=== PATIENT | female | born 1985 | race American Indian/Alaskan Native ===

== ENCOUNTER 2018-04-24 10:29 | Emergency (ER) | payer SELFPAY ==
--- NOTE | 2018-04-24 11:29 | Emergency Department Report ---
Chief Complaint: Abdominal Pain Stated Complaint: ABD PAIN/ POSS FROM CONTROL Time Seen by Provider: 04/24/18 11:13 - HPI History of Present Illness: 32 yo AA F presents to the ED with the complaint of dysfunctional uterine bleeding and now some pelvic pain and vaginal discharge. She has a history of abnormal vaginal bleeding and was seen in a hospital in [place] or [place], and then again at [facility] 2 weeks ago. She was placed on control. The previous heavy bleeding has slowed down but now she has pelvic discomfort and some vaginal discharge. No PCP or [facility]. - ROS Review of Systems: Positive for vaginal bleeding and discharge, pelvic pain Negative for dyuria, N/V, fever - Exam Vital Signs: Vital Signs 04/24/18 10:38 Temperature 98.1 F Pulse Rate 80 Respiratory 18 Rate Blood Pressure 128/80 O2 Sat by Pulse 99 Oximetry Physical Exam: Awake and alert. Heart and lung sounds normal to auscultation. MSE screening note: Focused history and physical exam performed. Due to findings the following was ordered: She will have a CBC, BMP, U/A, preg test, and a pelvic ultrasound. ED Disposition for MSE Condition: Stable Instructions: Abdominal Pain (ED) Referrals: PRIMARY CARE [Primary Care Provider] - 3-5 Days
[2018-04-24 11:40] LABS: Basophils % (Auto) 0.5 % (0.0-1.8); Eosinophils # (Auto) 0.1 K/mm3 (0.0-0.4); Eosinophils % (Auto) 1.4 % (0.0-4.3); Hematocrit 33.4 % (30.3-42.9); Hemoglobin 10.8 gm/dl (10.1-14.3); Lymphocytes # (Auto) 1.8 K/mm3 (1.2-5.4); Mean Corpuscular HGB Conc 32 % (30-34); Mean Corpuscular Volume 77 fl (79-97); Monocytes # (Auto) 0.5 K/mm3 (0.0-0.8); Monocytes % (Auto) 7.3 % (0.0-7.3); Platelet Count 335 K/mm3 (140-440); Red Blood Count 4.32 M/mm3 (3.65-5.03)
[2018-04-24 11:53] LABS: Mean Corpuscular Hemoglobin 25 pg (28-32); Red Cell Distribution Width 20.3 % (13.2-15.2)
[2018-04-24 11:59] LABS: BUN/Creatinine Ratio 13; Blood Urea Nitrogen 9 mg/dL (7-17); Hemolysis Index 3
--- NOTE | 2018-04-24 14:34 | Ultrasound Report ---
FINAL REPORT EXAM: US PELVIS DUPLEX DOPPLER COMP HISTORY: pelvic pain TECHNIQUE: Transabdominal and transvaginal pelvic ultrasound. Spectral Doppler analysis performed. PRIORS: None currently available. FINDINGS: Uterus: 11.3 x 5.6 x 6.8 cm. Retroflex. Homogeneous echotexture. Within normal limits. No distinct lesions. Endometrium: 19.4 mm. Thickened. No distinct lesions. Echogenic. Irregular borders. Right ovary: 3.1 x 2.3 x 3.0 cm. Mildly lobulated 2.6 cm cyst. Normal spectral Doppler flow within the ovary. Left ovary: 4.8 x 2.5 x 3.8 cm. Mildly lobulated 3.8 cm cyst with internal low level echoes. Mild peripheral flow. Normal spectral Doppler flow within the ovary. No adnexal lesions. Small amount of free fluid in the endocervical canal. No free fluid in the cul-de-sac. IMPRESSION: Mildly complex left ovarian cyst may represent a corpus luteal cyst or hemorrhagic cyst. Cystic tumor not entirely excluded. Mildly lobulated otherwise simple right ovarian cyst. Short-term interval follow-up to document bilateral ovarian cysts recommended. Small amount of free fluid in the endometrial canal. Thickened slightly irregular endometrium may be related to hyperplasia. Lesion not entirely excluded.
--- NOTE | 2018-04-24 16:13 | Emergency Department Report ---
ED Female HPI - General Chief complaint: Abdominal Pain Stated complaint: ABD PAIN/ POSS FROM CONTROL Time Seen by Provider: 04/24/18 11:13 Source: patient Mode of arrival: Ambulatory Limitations: No Limitations - History of Present Illness Initial comments: This is a 32-year-old -[place] female who presents with vaginal bleeding for 1 month. Patient states she was on vacation one month ago and had abnormal vaginal bleeding with passing clots. She went to the nearest hospital in [place] and was diagnosed with dysfunctional uterine bleeding. Patient states symptoms improved slightly with medication given in the hospital but when she returned home 2 weeks later and bleeding increased which prompt her to follow up at [facility]. [facility] agree with previous Hospital of dysfunctional uterine bleeding and started patient on blood pressure medication. Patient states bleeding has improved she is now having light bleeding which only requires pantiliners. Denies passing large clots, abdominal pain, low back pain, fever, lightheadedness, chest pain, and shortness of breath. MD Complaint: vaginal bleeding Onset/Timin -: month(s) Severity: mild Severity scale (0 -10): 4 Consistency: intermittent Improves with: medication Worsens with: none Are you Now?: No Associated Symptoms: vaginal bleeding. denies: vaginal discharge, abdominal pain, nausea/vomiting, fever/chills, headaches, loss of appetite, dysuria, hematuria, rash, seizure, shortness of breath, syncope, weakness - Related Data Sexually active: Yes Previous Rx's Medication Instructions Recorded Last Taken Type metroNIDAZOLE [Metronidazole] 500 mg PO BID #14 tablet 04/24/18 Unknown Rx Allergies Allergy/AdvReac Type Severity Reaction Status Date / Time No Known Allergies Allergy Unverified 04/24/18 10:37 ED Review of Systems ROS: Stated complaint: ABD PAIN/ POSS FROM CONTROL Other details as noted in HPI Constitutional: denies: chills, fever Respiratory: denies: cough, shortness of breath, wheezing Cardiovascular: denies: chest pain, palpitations Gastrointestinal: denies: abdominal pain, nausea, vomiting, diarrhea Genitourinary: other (abnormal vaginal bleeding). denies: urgency, dysuria, discharge Neurological: denies: headache, weakness, paresthesias Psychiatric: denies: anxiety, depression ED Past Medical Hx - Past Medical History Previous Medical History?: Yes Additional medical history: anemia - Surgical History Past Surgical History?: Yes Additional Surgical History: x 3 - Social History Smoking Status: Former Smoker Substance Use Type: None - Medications Home Medications: Home Medications Medication Instructions Recorded Confirmed Last Taken Type metroNIDAZOLE [Metronidazole] 500 mg PO BID #14 tablet 04/24/18 Unknown Rx ED Physical Exam - General Limitations: No Limitations General appearance: alert, in no apparent distress, obese - Respiratory Respiratory exam: Present: normal lung sounds bilaterally. Absent: respiratory distress - Cardiovascular Cardiovascular Exam: Present: regular rate, normal rhythm. Absent: systolic murmur, diastolic murmur, rubs, gallop - GI/Abdominal GI/Abdominal exam: Present: soft, normal bowel sounds. Absent: distended, tenderness, guarding, rebound, rigid, organomegaly, mass - External exam: Present: normal external exam Speculum exam: Present: vaginal discharge (malodorous white discharge). Absent : erythema, cervical discharge, vaginal bleeding, foreign body, tissue, laceration Bi-manual exam: Present: normal bi-manual exam - Back Exam Back exam: Present: normal inspection. Absent: CVA tenderness (R), CVA tenderness (L) - Neurological Exam Neurological exam: Present: alert, oriented X3 - Psychiatric Psychiatric exam: Present: normal affect, normal mood - Skin Skin exam: Present: warm, dry, intact, normal color. Absent: rash ED Course Vital Signs 04/24/18 10:38 Temperature 98.1 F Pulse Rate 80 Respiratory 18 Rate Blood Pressure 128/80 O2 Sat by Pulse 99 Oximetry ED Medical Decision Making - Lab Data Result diagrams: 04/24/18 11:31 04/24/18 11:31 Lab Results 04/24/18 04/24/18 04/24/18 Range/Units 11:31 11:31 11:31 WBC 7.1 (4.5-11.0) K/mm3 RBC 4.32 (3.65-5.03) M/mm3 Hgb 10.8 (10.1-14.3) gm/dl Hct 33.4 (30.3-42.9) % MCV 77 L (79-97) fl MCH 25 L (28-32) pg MCHC 32 (30-34) % RDW 20.3 H (13.2-15.2) % Plt Count 335 (140-440) K/mm3 Lymph % (Auto) 26.0 (13.4-35.0) % Douglas % (Auto) 7.3 (0.0-7.3) % Eos % (Auto) 1.4 (0.0-4.3) % Baso % (Auto) 0.5 (0.0-1.8) % Lymph # 1.8 (1.2-5.4) K/mm3 Douglas # 0.5 (0.0-0.8) K/mm3 Eos # 0.1 (0.0-0.4) K/mm3 Baso # 0.0 (0.0-0.1) K/mm3 Seg Neutrophils % 64.8 (40.0-70.0) % Seg Neutrophils # 4.6 (1.8-7.7) K/mm3 Sodium 138 (137-145) mmol/L Potassium 4.1 (3.6-5.0) mmol/L Chloride 100.8 (98-107) mmol/L Carbon Dioxide 26 (22-30) mmol/L Anion Gap 15 mmol/L BUN 9 (7-17) mg/dL Creatinine 0.7 (0.7-1.2) mg/dL Estimated GFR > 60 ml/min BUN/Creatinine Ratio 13 % Glucose 96 (65-100) mg/dL Calcium 9.0 (8.4-10.2) mg/dL HCG, Qual Negative (Negative) - Radiology Data Radiology results: report reviewed EXAM: US TRANSVAGINAL HISTORY: pelvic pain TECHNIQUE: Transabdominal and transvaginal pelvic ultrasound. Spectral Doppler analysis performed. PRIORS: None currently available. FINDINGS: Uterus: 11.3 x 5.6 x 6.8 cm. Retroflex. Homogeneous echotexture. Within normal limits. No distinct lesions. Endometrium: 19.4 mm. Thickened. No distinct lesions. Echogenic. Irregular borders. Right ovary: 3.1 x 2.3 x 3.0 cm. Mildly lobulated 2.6 cm cyst. Normal spectral Doppler flow within the ovary. Left ovary: 4.8 x 2.5 x 3.8 cm. Mildly lobulated 3.8 cm cyst with internal low level echoes. Mild peripheral flow. Normal spectral Doppler flow within the ovary. No adnexal lesions. Small amount of free fluid in the endocervical canal. No free fluid in the cul-de-sac. IMPRESSION: Mildly complex left ovarian cyst may represent a corpus luteal cyst or hemorrhagic cyst. Cystic tumor not entirely excluded. Mildly lobulated otherwise simple right ovarian cyst. Short-term interval follow-up to document bilateral ovarian cysts recommended. Small amount of free fluid in the endometrial canal. Thickened slightly irregular endometrium may be related to hyperplasia. Lesion not entirely excluded. EXAM: US PELVIS DUPLEX DOPPLER COMP HISTORY: pelvic pain TECHNIQUE: Transabdominal and transvaginal pelvic ultrasound. Spectral Doppler analysis performed. PRIORS: None currently available. FINDINGS: Uterus: 11.3 x 5.6 x 6.8 cm. Retroflex. Homogeneous echotexture. Within normal limits. No distinct lesions. Endometrium: 19.4 mm. Thickened. No distinct lesions. Echogenic. Irregular borders. Right ovary: 3.1 x 2.3 x 3.0 cm. Mildly lobulated 2.6 cm cyst. Normal spectral Doppler flow within the ovary. Left ovary: 4.8 x 2.5 x 3.8 cm. Mildly lobulated 3.8 cm cyst with internal low level echoes. Mild peripheral flow. Normal spectral Doppler flow within the ovary. No adnexal lesions. Small amount of free fluid in the endocervical canal. No free fluid in the cul-de-sac. IMPRESSION: Mildly complex left ovarian cyst may represent a corpus luteal cyst or hemorrhagic cyst. Cystic tumor not entirely excluded. Mildly lobulated otherwise simple right ovarian cyst. Short-term interval follow-up to document bilateral ovarian cysts recommended. Small amount of free fluid in the endometrial canal. Thickened slightly irregular endometrium may be related to hyperplasia. Lesion not entirely excluded. - Medical Decision Making This is a 32-year-old -[place] female who presents with increased vaginal bleeding for 1 month. Patient was examined by me. Vitals are stable and in no acute distress. CBC, BMP, hcg qual, and wet prep obtained via pelvic exam. Wet prep positive for clue cells, all other labs unremarkable. Transvaginal US dictated by radiologist. Mildly complex left ovarian cyst may represent a corpus luteal cyst or hemorrhagic cyst. Cystic tumor not entirely excluded. Mildly lobulated otherwise simple right ovarian cyst. Short-term interval follow-up to document bilateral ovarian cysts recommended. Small amount of free fluid in the endometrial canal. Thickened slightly irregular endometrium may be related to hyperplasia. Lesion not entirely excluded. Patient is currently taking oral contraceptives prescribed by [facility]. Start metronidazole 500 mg by mouth bid x 7 days for bacterial vaginitis. Referral to [facility] for follow-up , patient given referrals at discharge. Reviewed results with patient. Discharged home in stable condition. Discussed prevention options. F/U with PCP. Critical care attestation.: If time is entered above; I have spent that time in minutes in the direct care of this critically ill patient, excluding procedure time. ED Disposition Clinical Impression: Dysfunctional uterine bleeding, Bacterial vaginitis, Endometrial hyperplasia Disposition: TO HOME OR SELFCARE Is pt being admited?: No Does the pt Need Aspirin: No Condition: Stable Instructions: Bacterial Vaginosis (ED), Abdominal Pain (ED) Additional Instructions: Avoid drinking alcohol while taking antibiotics and for 24 hours after completion. Continue safe sexual intercourse. Follow-up with [facility] in 2-4 days for further management of endometrium hyperplasia and Dysfunctional vaginal bleeding. Follow up with Primary Care Provider in 2-3 days. Prescriptions: metroNIDAZOLE [Metronidazole] 500 mg PO BID #14 tablet Referrals: [facility] [Provider Group] - 3-5 Days [facility] [Provider Group] - 3-5 Days [facility] [Outside] - 3-5 Days Forms: Work/School Release Form(ED) Time of Disposition: 17:36 Print Language: LAO
[2018-04-24 17:52] VITALS: BP 124/78
== END 2018-04-24 17:51 | disposition home or self-care (01) ==
LOC: ED 10:29
DX: N76.0 Acute vaginitis (principal); N93.8 Other specified abnormal uterine and vaginal bleeding; N85.00 Endometrial hyperplasia, unspecified; Z86.2 Personal history of diseases of the blood and blood-forming organs and certain disorders involving the immune mechanism; Z87.891 Personal history of nicotine dependence
CPT/HCPCS: 36415; 76830; 80048; 84703; 85025; 87210; 93975; 99284

== ENCOUNTER 2019-08-14 06:51 | Observation (INO) | payer OTHER ==
--- NOTE | 2019-08-14 07:27 | XRay Report ---
CHEST 1 VIEW INDICATION / CLINICAL INFORMATION: Chest Pain. COMPARISON: 11/02/2010 FINDINGS: SUPPORT DEVICES: None. HEART / MEDIASTINUM: No significant abnormality. LUNGS / PLEURA: No significant pulmonary or pleural abnormality. No pneumothorax. ADDITIONAL FINDINGS: No significant additional findings. IMPRESSION: 1. No acute findings. No interval change. Signer Name: Lizy Og MD Signed: 08/14/2019 7:22 AM Workstation Name: [id number][id number]
[2019-08-14 07:49] LABS: BUN/Creatinine Ratio 11; Blood Urea Nitrogen 9 mg/dL (7-17); Calcium 9.1 mg/dL (8.4-10.2); Hemolysis Index 12
[2019-08-14 07:57] LABS: Basophils % (Auto) 0.8 % (0.0-1.8); Eosinophils # (Auto) 0.1 K/mm3 (0.0-0.4); Eosinophils % (Auto) 2.8 % (0.0-4.3); Hematocrit 31.5 % (30.3-42.9); Hemoglobin 10.1 gm/dl (10.1-14.3); Lymphocytes # (Auto) 1.3 K/mm3 (1.2-5.4); Lymphocytes % (Auto) 24.8 % (13.4-35.0); Mean Corpuscular HGB Conc 32 % (30-34); Mean Corpuscular Volume 77 fl (79-97); Monocytes # (Auto) 0.5 K/mm3 (0.0-0.8); Monocytes % (Auto) 9.3 % (0.0-7.3); Platelet Count 379 K/mm3 (140-440); Red Blood Count 4.08 M/mm3 (3.65-5.03); Red Cell Distribution Width 18.7 % (13.2-15.2)
[2019-08-14] MEDS ORDERED: KETOROLAC 60 MG/2 ML INJ IM ONE (09:44)
[2019-08-14] MEDS ORDERED: ONDANSETRON 4 MG ODT TAB PO ONE (09:44)
--- NOTE | 2019-08-14 09:49 | Emergency Department Report ---
ED Chest Pain HPI - General Chief Complaint: Chest Pain Stated Complaint: CHEST PAIN, FEEL LIKE A HEART ATTACK Time Seen by Provider: 08/14/19 09:34 Source: patient Mode of arrival: Ambulatory Limitations: No Limitations - History of Present Illness Initial Comments: 34-year-old female with a past medical history of anemia requiring blood transfusion, smoking, and cocaine use presents to the hospital complaining of chest pain that started 1 hour prior to arrival. Pain is described as 10/10 in intensity, a left-sided pressure radiating to the back. Pain has been constant recently 8/10 at onset now currently 7/10 in intensity. No aggravating or a lleviating factors reported. Patient had associated palpitations, shortness of breath, and dizziness. Patient has had nausea with 2 episodes of vomiting and 3 episodes of loose stools last night. She denies history of CAD, hypertension, or hyperlipidemia. Her father has a history of heart surgery in the past. She denies history of PE/DVT, control per use, recent travel, calf tenderness/ leg edema, or recent surgery. MD Complaint: chest pain - Related Data Previous Rx's Medication Instructions Recorded Last Taken Type metroNIDAZOLE [Metronidazole] 500 mg PO BID #14 tablet 04/24/18 Unknown Rx Allergies Allergy/AdvReac Type Severity Reaction Status Date / Time No Known Allergies Allergy Unverified 04/24/18 10:37 Heart Score - HEART Score History: Slightly suspicious EKG: Normal Age: < 45 Risk factors: 1-2 risk factors Troponin: < normal limit HEART Score: 1 ED Review of Systems ROS: Stated complaint: CHEST PAIN, FEEL LIKE A HEART ATTACK Other details as noted in HPI Comment: All other systems reviewed and negative ED Past Medical Hx - Past Medical History Previous Medical History?: Yes Additional medical history: anemia - Surgical History Past Surgical History?: Yes Additional Surgical History: x 3 - Social History Smoking Status: Current Every Day Smoker Substance Use Type: None - Medications Home Medications: Home Medications Medication Instructions Recorded Confirmed Last Taken Type metroNIDAZOLE [Metronidazole] 500 mg PO BID #14 tablet 04/24/18 Unknown Rx ED Physical Exam - General Limitations: No Limitations - Other Other exam information: General: No acute distress Head: Atraumatic Eyes: normal appearance ENT: Moist mucous membranes Neck: Normal appearance, no midline tenderness Chest: Clear to auscultation bilaterally, mid and lower sternal chest wall tenderness CV: Regular rate and rhythm Abdomen: Soft, normal bowel sounds, nontender, nondistended, no rebound or guarding Back: Normal inspection Extremity: Normal inspection infection, full range of motion, no calf tenderness or leg edema Neuro: Alert O x 3, no facial asymmetry, speech clear, no gross motor sensory deficit Psych: Appropriate behavior Skin: No rash ED Course Vital Signs 08/14/19 08/14/19 06:57 10:09 Temperature 97.9 F Pulse Rate 73 70 Respiratory 12 18 Rate Blood Pressure 155/89 Blood Pressure 146/94 [Left] O2 Sat by Pulse 100 99 Oximetry - Consultations Consultation #1: 08/14/19 11:23 pt evaluated by estuardo/nicole with [facility]. ekg changes nonspecific. rec admission for card workup KEVIN score - Kevin Score Age > 65: (0) No Aspirin use within the Past 7 Days: (0) No 3 or more CAD Risk Factors: (0) No 2 or more Angina events in past 24 hrs: (0) No Known CAD with more than 50% Stenosis: (0) No Elevated Cardiac Markers: (0) No ST Deviation Greater than 0.5mm: (0) No KEVIN Score: 0 ED Medical Decision Making - Lab Data Result diagrams: 08/14/19 07:22 08/14/19 07:22 Lab Results 08/14/19 08/14/19 08/14/19 Range/Units 07:22 07:22 07:22 WBC 5.1 (4.5-11.0) K/mm3 RBC 4.08 (3.65-5.03) M/mm3 Hgb 10.1 (10.1-14.3) gm/dl Hct 31.5 (30.3-42.9) % MCV 77 L (79-97) fl MCH 25 L (28-32) pg MCHC 32 (30-34) % RDW 18.7 H (13.2-15.2) % Plt Count 379 (140-440) K/mm3 Lymph % (Auto) 24.8 (13.4-35.0) % [place] % (Auto) 9.3 H (0.0-7.3) % Eos % (Auto) 2.8 (0.0-4.3) % Baso % (Auto) 0.8 (0.0-1.8) % Lymph # 1.3 (1.2-5.4) K/mm3 [place] # 0.5 (0.0-0.8) K/mm3 Eos # 0.1 (0.0-0.4) K/mm3 Baso # 0.0 (0.0-0.1) K/mm3 Seg Neutrophils % 62.3 (40.0-70.0) % Seg Neutrophils # 3.2 (1.8-7.7) K/mm3 Sodium 138 (137-145) mmol/L Potassium 3.7 (3.6-5.0) mmol/L Chloride 101.9 (98-107) mmol/L Carbon Dioxide 25 (22-30) mmol/L Anion Gap 15 mmol/L BUN 9 (7-17) mg/dL Creatinine 0.8 (0.7-1.2) mg/dL Estimated GFR > 60 ml/min BUN/Creatinine Ratio 11 % Glucose 100 (65-100) mg/dL Calcium 9.1 (8.4-10.2) mg/dL Troponin T < 0.010 (0.00-0.029) ng/mL HCG, Qual Negative (Negative) 08/14/19 Range/Units 10:02 WBC (4.5-11.0) K/mm3 RBC (3.65-5.03) M/mm3 Hgb (10.1-14.3) gm/dl Hct (30.3-42.9) % MCV (79-97) fl MCH (28-32) pg MCHC (30-34) % RDW (13.2-15.2) % Plt Count (140-440) K/mm3 Lymph % (Auto) (13.4-35.0) % [place] % (Auto) (0.0-7.3) % Eos % (Auto) (0.0-4.3) % Baso % (Auto) (0.0-1.8) % Lymph # (1.2-5.4) K/mm3 [place] # (0.0-0.8) K/mm3 Eos # (0.0-0.4) K/mm3 Baso # (0.0-0.1) K/mm3 Seg Neutrophils % (40.0-70.0) % Seg Neutrophils # (1.8-7.7) K/mm3 Sodium (137-145) mmol/L Potassium (3.6-5.0) mmol/L Chloride (98-107) mmol/L Carbon Dioxide (22-30) mmol/L Anion Gap mmol/L BUN (7-17) mg/dL Creatinine (0.7-1.2) mg/dL Estimated GFR ml/min BUN/Creatinine Ratio % Glucose (65-100) mg/dL Calcium (8.4-10.2) mg/dL Troponin T < 0.010 (0.00-0.029) ng/mL HCG, Qual (Negative) - EKG Data -: EKG Interpreted by Me EKG shows normal: sinus rhythm, ST-T waves (no stemi) Rate: normal - EKG Data 08/14/19 11:24 second ekg with ant t wave inv compare to earlier one - Radiology Data Radiology results: report reviewed CHEST 1 VIEW INDICATION / CLINICAL INFORMATION: Chest Pain. COMPARISON: 11/02/2010 FINDINGS: SUPPORT DEVICES: None. HEART / MEDIASTINUM: No significant abnormality. LUNGS / PLEURA: No significant pulmonary or pleural abnormality. No pneumothorax. ADDITIONAL FINDINGS: No significant additional findings. IMPRESSION: 1. No acute findings. No interval change. - Medical Decision Making pts Perc PE calculation is 0 therefore ddimer not obtained trop neg x 2 sternal chest tender ant t wave inv new compared to previous ekg, nonspecific but reviewed by card and admission for cp wkup rec. asa and toradol provided - Differential Diagnosis mi, unstable angina, pe, vasospam, costocondritis, Critical Care Time: No Critical care attestation.: If time is entered above; I have spent that time in minutes in the direct care of this critically ill patient, excluding procedure time. ED Disposition Clinical Impression: Chest pain, T wave inversion in EKG, Cocaine abuse, Smoker Disposition: OP ADMIT IP TO THIS HOSP Is pt being admited?: Yes Does the pt Need Aspirin: Yes Condition: Stable Time of Disposition: 11:25 (dr gonsalez/hosp)
[2019-08-14] MEDS ORDERED: ASPIRIN 325 MG TAB PO ONE (11:23)
--- NOTE | 2019-08-14 13:20 | History and Physical Report ---
History of Present Illness Date of admission: 08/14/19 11:28 Medications and Allergies Allergies Allergy/AdvReac Type Severity Reaction Status Date / Time No Known Allergies Allergy Unverified 04/24/18 10:37 Home Medications Medication Instructions Recorded Confirmed Last Taken Type metroNIDAZOLE [Metronidazole] 500 mg PO BID #14 tablet 04/24/18 Unknown Rx Exam - Constitutional Vitals: Temp Pulse Resp BP Pulse Ox 97.9 F 75 18 112/66 100 08/14/19 06:57 08/14/19 11:45 08/14/19 11:45 08/14/19 11:45 08/14/19 11:45 Results - Labs CBC & Chem 7: 08/14/19 07:22 08/14/19 07:22 Labs: Abnormal lab results 08/14/19 Range/Units 07:22 MCV 77 L (79-97) fl MCH 25 L (28-32) pg RDW 18.7 H (13.2-15.2) % Craig % (Auto) 9.3 H (0.0-7.3) %
--- NOTE | 2019-08-14 13:35 | Consultation ---
History of Present Illness Consult date: 08/14/19 Consult reason: chest pain History of present illness: This is a 34-year old woman who presents with chest pain associated with palpitations and shortness of breath. Patient has no prior medical history. Patient admits to tobacco and substance abuse. A chest x-ray done is negative. Cycled cardiac enzymes are negative thus far and her initial ECG is sinus rhythm, no acute ST or T wave changes. A repeat ECG is sinus rhythm with non- specific Twave inversions of the anterior leads. Medications and Allergies Allergies Allergy/AdvReac Type Severity Reaction Status Date / Time No Known Allergies Allergy Unverified 04/24/18 10:37 Home Medications Medication Instructions Recorded Confirmed Last Taken Type metroNIDAZOLE [Metronidazole] 500 mg PO BID #14 tablet 04/24/18 Unknown Rx Active Meds: Active Medications Pantoprazole Sodium (Protonix) 40 mg PO QDAY CRYSTAL Physical Examination Vital Signs Temp Pulse Resp BP Pulse Ox 97.9 F 73 12 155/89 100 08/14/19 06:57 08/14/19 06:57 08/14/19 06:57 08/14/19 06:57 08/14/19 06:57 Results 08/14/19 07:22 08/14/19 07:22 CBC 08/14/19 Range/Units 07:22 WBC 5.1 (4.5-11.0) K/mm3 RBC 4.08 (3.65-5.03) M/mm3 Hgb 10.1 (10.1-14.3) gm/dl Hct 31.5 (30.3-42.9) % Plt Count 379 (140-440) K/mm3 Lymph # 1.3 (1.2-5.4) K/mm3 [place] # 0.5 (0.0-0.8) K/mm3 Eos # 0.1 (0.0-0.4) K/mm3 Baso # 0.0 (0.0-0.1) K/mm3 Comprehensive Metabolic Panel 08/14/19 Range/Units 07:22 Sodium 138 (137-145) mmol/L Potassium 3.7 (3.6-5.0) mmol/L Chloride 101.9 (98-107) mmol/L Carbon Dioxide 25 (22-30) mmol/L BUN 9 (7-17) mg/dL Creatinine 0.8 (0.7-1.2) mg/dL Glucose 100 (65-100) mg/dL Calcium 9.1 (8.4-10.2) mg/dL
[2019-08-14] MEDS: KETOROLAC 30 MG/1 ML INJ IV SCH ×2 (15:06→22:42)
[2019-08-14] MEDS: PANTOPRAZOLE 40 MG TAB PO SCH (15:06)
--- NOTE | 2019-08-14 15:11 | History and Physical Report ---
History of Present Illness Date of admission: 08/14/19 11:28 Chief complaint: My chest hurts History of present illness: 34 YO Female with Obesity, Nicotine Dependence, Cocaine Dependence presents to ED for evaluation. Pt states that she has experienced acute onset of pain in her chest over the past 1 hours. Pt acknowledges cocaine use today. Pt states that her pain is 7-10/10, Localized to the left chest, radiates to the back. Pt denies worsening with exertion or relief with rest. Pt transported to [facility] via private vehicle. Pt seen and evaluated in ED and found to have Angina, suspected secondary to cocaine ingestion. Cardiology consulted in ED. Pt placed in observation status, and admitted to telemetry. Pt denies fever, chills, palpitations, NVD, Trauma, Prolonged travel/immobility, unilateral leg swelling, individual/family history of DVT/PE/Bleeding/Blood Clotting Disorders. No prior admission for review. No medication listed for reconciliation at time of admission. Past History Past Medical History: other (see hpi) Past Surgical History: Social history: single, smoking. denies: alcohol abuse Family history: hypertension Medications and Allergies Allergies Allergy/AdvReac Type Severity Reaction Status Date / Time No Known Allergies Allergy Unverified 04/24/18 10:37 Home Medications Medication Instructions Recorded Confirmed Last Taken Type metroNIDAZOLE [Metronidazole] 500 mg PO BID #14 tablet 04/24/18 Unknown Rx Active Meds: Active Medications Ketorolac Tromethamine (Toradol) 30 mg IV Q8HR [facility] Stop: 08/19/19 13:59 Pantoprazole Sodium (Protonix) 40 mg PO QDAY [facility] Review of Systems Constitutional: no weight loss, no weight gain, no fever, no chills Ears, nose, mouth and throat: no ear pain, no tinnitis, no decreased hearing, no nose pain, no nasal congestion, no sinus pressure Breasts: no change in shape, no swelling, no mass Cardiovascular: chest pain, no orthopnea, no syncope, no lightheadedness, no shortness of breath, no dyspnea on exertion, no paroxysmal nocturnal dyspnea, no high blood pressure, no decreased exercise tolerance Respiratory: no cough, no cough with sputum, no excessive sputum Gastrointestinal: no abdominal pain, no nausea, no vomiting, no diarrhea, no constipation Genitourinary Female: no dysmenorrhea, no pelvic pain, no flank pain, no menorrhagia, no dysuria Rectal: no pain, no incontinence, no bleeding Musculoskeletal: no neck stiffness, no neck pain, no shooting arm pain, no low back pain, no leg numbness/tingling Integumentary: no rash, no redness, no sores, no wounds, no jaundice, no boils Neurological: no head injury, no transient paralysis, no paralysis, no parathesias, no numbness, no seizures, no syncope Psychiatric: no anxiety, no memory loss, no change in sleep habits, no insomnia, no hypersomnia, no disorientation Endocrine: no cold intolerance, no heat intolerance, no polyphagia, no excessive thirst, no polydipsia, no polyuria, no nocturia, no flushing Hematologic/Lymphatic: no easy bruising, no easy bleeding, no lymphadenopathy, no lymphedema Allergic/Immunologic: no urticaria, no allergic rhinitis, no wheezing, no persistent infections, no anaphylaxis, no angioedema Exam - Constitutional Vitals: Temp Pulse Resp BP Pulse Ox 97.9 F 75 18 112/66 100 08/14/19 06:57 08/14/19 11:45 08/14/19 11:45 08/14/19 11:45 08/14/19 11:45 General appearance: Present: mild distress - EENT Eyes: Present: PERRL ENT: hearing intact, clear oral mucosa - Neck Neck: Present: supple, normal ROM - Respiratory Respiratory effort: normal Respiratory: bilateral: CTA - Cardiovascular Heart Sounds: Present: S1 & S2. Absent: rub, click - Extremities Extremities: pulses symmetrical, No edema Peripheral Pulses: within normal limits - Abdominal General gastrointestinal: Present: soft, non-tender, non-distended, normal bowel sounds Female genitourinary: Present: normal - Integumentary Integumentary: Present: clear, warm, dry - Musculoskeletal Musculoskeletal: gait normal, strength equal bilaterally - Psychiatric Psychiatric: appropriate mood/affect, intact judgment & insight - Neurologic Neurologic: CNII-XII intact, moves all extremities Results - Labs CBC & Chem 7: 08/14/19 07:22 08/14/19 07:22 Labs: Abnormal lab results 08/14/19 Range/Units 07:22 MCV 77 L (79-97) fl MCH 25 L (28-32) pg RDW 18.7 H (13.2-15.2) % [place] % (Auto) 9.3 H (0.0-7.3) % Assessment and Plan - Patient Problems (1) Angina at rest Current Visit: Yes Status: Acute Plan to address problem: Cardiology consulted in ED, serial cardiac enzymes, ekg, telemetry, Stress test as per cardiology team, CTA chest, lipid panel, PPI therapy (2) EKG abnormality Current Visit: Yes Status: Acute Plan to address problem: cardiology consulted for T wave inversions. (3) Nicotine dependence Current Visit: Yes Status: Acute Qualifiers: Nicotine product type: cigarettes Substance use status: in withdrawal Qualified Code(s): F17.213 - Nicotine dependence, cigarettes, with withdrawal Plan to address problem: smoking cessation counseling, +15min, supportive care. (4) Obesity Current Visit: Yes Status: Acute Plan to address problem: Balanced diet, increased physical activity at discharge (5) Cocaine abuse Current Visit: Yes Status: Acute Plan to address problem: Pt counseled regarding abstinence. 15min behavior change counseling. (6) DVT prophylaxis Current Visit: Yes Status: Acute Plan to address problem: SCD to BLE while in bed, Pt ambulatory
[2019-08-14 19:00] LABS: Amphetamine Screen,Urine PRESUMPTIVE NEGATIVE; Benzodiazepines Screen,Urine PRESUMPTIVE NEGATIVE; Methadone Screen,Urine PRESUMPTIVE NEGATIVE; Opiate Screen,Urine PRESUMPTIVE NEGATIVE
[2019-08-14 19:13] LABS: Cannabinoid Screen,Urine PRESUMPTIVE POSITIVE; Cocaine Screen,Urine PRESUMPTIVE POSITIVE
--- NOTE | 2019-08-14 19:20 | Cat Scan Report ---
CT angio chest INDICATION: Chest pain. TECHNIQUE: All CT scans at this location are performed using CT dose reduction for ALARA by means of automated e xposure control. Precontrast localizer images were obtained, followed by axial and 3-dimensional reconstruction images , performed at an independent workstation by the histologist technologist after IV bolus contrast injection. COMPARISON: None available. FINDINGS: Mediastinum, anjelica and axillae are negative. Uppermost abdomen is unremarkable. No pleural fluid. No s ignificant parenchymal lesions. No evidence of pulmonary embolus. IMPRESSION: 1. Negative for pulmonary embolus or other acute disease. Signer Name: Tenzin Do MD Signed: 08/14/2019 7:16 PM Workstation Name: [id number]
[2019-08-15] MEDS: KETOROLAC 30 MG/1 ML INJ IV SCH (05:24)
[2019-08-15] MEDS ORDERED: REGADENOSON 0.4 MG/5 ML INJ IV ONE (07:02)
[2019-08-15 09:37] VITALS: BP 131/89
[2019-08-15] MEDS: PANTOPRAZOLE 40 MG TAB PO SCH (10:37)
--- NOTE | 2019-08-15 11:14 | Progress Note ---
Assessment and Plan Atypical chest pain Excellent exercise tolerance on Ronak protocol stress test No ischemia on MPI with a normal LVEF CTA chest - no PE Recommendations: Follow-up echocardiogram May go home if echo within normal limits Subjective Date of service: 08/15/19 Principal diagnosis: Chest Pain Interval history: Patient is doing well No arrhythmias on tele Objective Vital Signs Temp Pulse Resp BP BP Pulse Ox 08/15/19 10:24 63 08/15/19 09:23 131/89 08/15/19 09:21 158/93 08/15/19 08:17 124/82 08/15/19 05:00 75 08/15/19 03:45 97.9 F 08/15/19 03:42 61 18 102/72 99 08/15/19 00:16 97.9 F 08/15/19 00:14 75 18 108/63 100 08/14/19 21:01 76 08/14/19 20:15 98.4 F 08/14/19 20:14 76 18 108/67 99 08/14/19 15:36 97.8 F 71 18 131/87 99 08/14/19 12:56 97.8 F 65 18 131/91 99 08/14/19 11:45 75 18 112/66 100 - Physical Examination General: Appears Well HEENT: Positive: PERRL Neck: Positive: neck supple Cardiac: Positive: Reg Rate and Rhythm Lungs: Positive: Normal Exam Abdomen: Positive: Unremarkable Extremities: Absent: edema
--- NOTE | 2019-08-15 12:02 | Treadmill Report ---
LEFT HEART CATHETERIZATION INDICATION FOR PROCEDURE: Chest pain. ORDERING PHYSICIAN: Mele Stephenson MD FINDINGS: The left ventricular cavity is normal in size. There is no scintigraphic evidence of myocardial ischemia. The left ventricular systolic function is normal with an ejection fraction measured at 67%. Normal wall motion and wall thickening is noted on gated imaging. CONCLUSION: Normal perfusion scan. JOB# [id number] ROBINSON/ASH
--- NOTE | 2019-08-15 12:22 | Discharge Summary ---
Providers - Providers Date of Admission: 08/14/19 11:28 Attending physician: KEITH ESPINAL MD 08/14/19 10:55 Consult to Physician [CONS] Urgent Comment: Consulting Provider: AMY CASTILLO Physician Instructions: Reason For Exam: cp Primary care physician: [employer] Hospitalization Reason for admission: CHEST PAIN Condition: Stable Hospital course: 34 YO Female with Obesity, Nicotine Dependence, Cocaine Dependence presents to ED for evaluation. Pt states that she has experienced acute onset of pain in her chest over the past 1 hours. Pt acknowledges cocaine use today. Pt states that her pain is 7-10/10, Localized to the left chest, radiates to the back. Pt denies worsening with exertion or relief with rest. Pt transported to [facility] via private vehicle. Pt seen and evaluated in ED and found to have Angina, suspected secondary to cocaine ingestion. Cardiology consulted in ED. Pt placed in observation status, and admitted to telemetry. Pt denies fever, chills, palpitations, NVD, Trauma, Prolonged travel/immobility, unilateral leg swelling, individual/family history of DVT/PE/Bleeding/Blood Clotting Disorders. No prior admission for review. No medication listed for reconciliation at time of admission. Stress test negative CTA negative for PE advised to quit cocain (1) ATYPICAL CHEST PAIN SECONDARY TO COSTOCHONDRITIS (2) Nicotine dependence Current Visit: Yes Status: Acute Qualifiers: Nicotine product type: cigarettes Substance use status: in withdrawal Qualified Code(s): F17.213 - Nicotine dependence, cigarettes, with withdrawal Plan to address problem: smoking cessation counseling, +15min, supportive care. (3) Obesity Current Visit: Yes Status: Acute Plan to address problem: Balanced diet, increased physical activity at discharge 4) Cocaine abuse Current Visit: Yes Status: Acute Plan to address problem: Pt counseled regarding abstinence. 15min behavior change counseling. Disposition: - TO HOME OR SELFCARE Time spent for discharge: 35 mins Core Measure Documentation - Palliative Care Palliative Care/ Comfort Measures: Not Applicable - Core Measures Any of the following diagnoses?: none Exam - Physical Exam Narrative exam: General appearance: Present: No distress - EENT Eyes: Present: PERRL ENT: hearing intact, clear oral mucosa - Neck Neck: Present: supple, normal ROM - Respiratory Respiratory effort: normal Respiratory: bilateral: CTA - Cardiovascular Heart Sounds: Present: S1 & S2. Absent: rub, click - Extremities Extremities: pulses symmetrical, No edema Peripheral Pulses: within normal limits - Abdominal General gastrointestinal: Present: soft, non-tender, non-distended, normal bowel sounds Female genitourinary: Present: normal - Integumentary Integumentary: Present: clear, warm, dry - Musculoskeletal Musculoskeletal: gait normal, strength equal bilaterally - Psychiatric Psychiatric: appropriate mood/affect, intact judgment & insight - Neurologic Neurologic: CNII-XII intact, moves all extremities - Constitutional Vitals: Temp Pulse Resp BP Pulse Ox 97.9 F 63 18 131/89 99 08/15/19 03:45 08/15/19 10:24 08/15/19 03:42 08/15/19 09:23 08/15/19 03:42 Plan Activity: advance as tolerated, fall precautions Diet: regular Special Instructions: smoking cessation Follow up with: PRIMARY CARE, [Primary Care Provider] - 7 Days
== END 2019-08-15 13:25 | disposition home or self-care (01) ==
LOC: ED 06:51 → 4A 11:28
PROVIDERS: ADMIT Internal Medicine; ATTEND Internal Medicine
DX: I20.9 Angina pectoris, unspecified (principal); R94.31 Abnormal electrocardiogram [ECG] [EKG]; F17.200 Nicotine dependence, unspecified, uncomplicated; F14.10 Cocaine abuse, uncomplicated; E66.9 Obesity, unspecified; Z68.30 Body mass index [BMI] 30.0-30.9, adult; Z90.49 Acquired absence of other specified parts of digestive tract
CPT/HCPCS: 36415; 71045; 71275; 78452; 80048; 80307; 84484; 84703; 85025; 93005; 93010; 93017; 93306; 96372; 96374; 96376; 99284; A9502; G0378; J1885; J2785; Q9967; Q0162

== ENCOUNTER 2022-03-12 03:07 | Emergency (ER) | payer OTHER ==
[2022-03-12 03:49] LABS: Bacteria,Urine 1+ /HPF (Negative); Bilirubin,Urine NEG (Negative); Blood,Urine NEG (Negative); Color,Urine Yellow (Yellow); Mucus,Urine 2+ /HPF; Protein,Urine <15 mg/dL mg/dL (Negative); Urobilinogen,Urine < 2.0 mg/dL (<2.0)
[2022-03-12 03:51] LABS: HCG Qualitative,Urine Negative (Negative)
[2022-03-12] MEDS ORDERED: ONDANSETRON 4 MG ODT TAB PO ONE (10:32)
[2022-03-12] MEDS ORDERED: IBUPROFEN 600 MG TAB PO ONE (10:32)
[2022-03-12 11:56] LABS: Basophils % (Auto) 0.5 % (0.0-1.8); Eosinophils # (Auto) 0.2 K/mm3 (0.0-0.4); Hematocrit 37.2 % (30.3-42.9); Hemoglobin 12.5 gm/dl (10.1-14.3); Lymphocytes # (Auto) 1.6 K/mm3 (1.2-5.4); Lymphocytes % (Auto) 28.4 % (13.4-35.0); Mean Corpuscular HGB Conc 34 % (30-34); Mean Corpuscular Volume 86 fl (79-97); Monocytes # (Auto) 0.5 K/mm3 (0.0-0.8); Monocytes % (Auto) 8.3 % (0.0-7.3); Platelet Count 338 K/mm3 (140-440); Red Blood Count 4.31 M/mm3 (3.65-5.03); Red Cell Distribution Width 15.9 % (13.2-15.2)
[2022-03-12 12:04] LABS: Alanine Aminotransferase 11 units/L (7-56); Albumin 4.4 g/dL (3.9-5); BUN/Creatinine Ratio 16; Blood Urea Nitrogen 13 mg/dL (7-17); Calcium 8.8 mg/dL (8.4-10.2); Hemolysis Index 0
[2022-03-12] MEDS ORDERED: LIDOCAINE-MPF (1%) 10 MG/1 ML VIAL 5 ML INFILTRATI ONE (13:51)
--- NOTE | 2022-03-12 14:47 | Emergency Department Report ---
ED Female HPI - General Chief complaint: Abdominal Pain Stated complaint: LOWER ABD PAIN, LOWER BACK PAIN Source: patient Mode of arrival: Ambulatory Limitations: No Limitations - History of Present Illness Initial comments: Patient is a 36-year-old -[place] female with a history of iron deficiency anemia who presents to the ED with complaint of acute onset persisten t vaginal discharge, suprapubic pressure, and vaginal itching for the last 1 week. Patient states that she suspect that she may have been exposed to sexually transmitted disease from her sexual partner of 9 years. Patient denies dizziness, syncope, dysuria, vaginal bleeding, abdominal pain, nausea and vomiting, low back pain, fever and chills, chest pain or shortness of breath, MD Complaint: vaginal discharge, pelvic pain (Suprapubic pressure), possible STD (Exposure to STD), other (Vaginal itching) -: Sudden, week(s) (1) Location: labia, suprapubic, other (VAGINAL) Radiation: non-radiating Severity: moderate Severity scale (0 -10): 4 Quality: burning, other (Itching) Consistency: constant Improves with: none Worsens with: urination Are you Now?: No Associated Symptoms: denies other symptoms, vaginal discharge. denies: vaginal bleeding, abdominal pain, nausea/vomiting, fever/chills, headaches, loss of appetite, dysuria, hematuria, rash, seizure, shortness of breath, syncope, weakness - Related Data Sexually active: Yes : 3 Para: 3 A: 0 Previous Rx's Medication Instructions Recorded Last Taken Type Doxycycline Hyclate 100 mg PO Q12H #20 cap 03/12/22 Unknown Rx Fluconazole [Diflucan TAB] 200 mg PO QDAY #2 tablet 03/12/22 Unknown Rx Allergies Allergy/AdvReac Type Severity Reaction Status Date / Time No Known Allergies Allergy Verified 03/12/22 14:12 ED Review of Systems ROS: Stated complaint: LOWER ABD PAIN, LOWER BACK PAIN Other details as noted in HPI Constitutional: denies: chills, fever Eyes: denies: eye pain, eye discharge, vision change ENT: denies: ear pain, throat pain Respiratory: denies: cough, shortness of breath, wheezing Cardiovascular: denies: chest pain, palpitations Endocrine: no symptoms reported Gastrointestinal: abdominal pain (Suprapubic pressure). denies: nausea, diarrhea Genitourinary: discharge (Vaginal discharge), other (Vaginal irritation). denies: urgency, dysuria Musculoskeletal: denies: back pain, joint swelling, arthralgia Skin: denies: rash, lesions Neurological: denies: headache, weakness, paresthesias Psychiatric: denies: anxiety, depression Hematological/Lymphatic: denies: easy bleeding, easy bruising ED Past Medical Hx - Past Medical History Previous Medical History?: Yes Additional medical history: anemia - Surgical History Past Surgical History?: Yes Additional Surgical History: x 3 - Social History Smoking Status: Current Some Day Smoker - Medications Home Medications: Home Medications Medication Instructions Recorded Confirmed Last Taken Type Doxycycline Hyclate 100 mg PO Q12H #20 cap 03/12/22 Unknown Rx Fluconazole [Diflucan TAB] 200 mg PO QDAY #2 tablet 03/12/22 Unknown Rx ED Physical Exam - General Limitations: No Limitations General appearance: alert, in no apparent distress - Head Head exam: Present: atraumatic, normocephalic, normal inspection - Eye Eye exam: Present: normal appearance, PERRL, EOMI Pupils: Present: normal accommodation - ENT ENT exam: Present: normal exam, normal orophraynx, mucous membranes moist, TM's normal bilaterally, normal external ear exam - Neck Neck exam: Present: normal inspection, full ROM - Respiratory Respiratory exam: Present: normal lung sounds bilaterally. Absent: respiratory distress, wheezes, rales, rhonchi, chest wall tenderness, accessory muscle use, decreased breath sounds, prolonged expiratory, other - Cardiovascular Cardiovascular Exam: Present: regular rate, normal rhythm, normal heart sounds. Absent: systolic murmur, diastolic murmur, rubs, gallop - GI/Abdominal GI/Abdominal exam: Present: soft, normal bowel sounds. Absent: tenderness, guarding, rebound, hyperactive bowel sounds, organomegaly - Bi-manual exam: Present: other (Pelvic exam deferred at this time, patient prefers self swab) - Extremities Exam Extremities exam: Present: normal inspection, full ROM, normal capillary refill - Back Exam Back exam: Present: normal inspection, full ROM. Absent: tenderness, CVA tenderness (R), CVA tenderness (L), muscle spasm, paraspinal tenderness, vertebral tenderness - Neurological Exam Neurological exam: Present: alert, oriented X3, CN II-XII intact, normal gait, reflexes normal - Psychiatric Psychiatric exam: Present: normal affect, normal mood - Skin Skin exam: Present: warm, dry, intact, normal color. Absent: rash ED Course Vital Signs 03/12/22 03:16 Temperature 98.3 F Pulse Rate 76 Respiratory 18 Rate Blood Pressure 140/87 O2 Sat by Pulse 96 Oximetry ED Medical Decision Making - Lab Data Result diagrams: 03/12/22 11:22 03/12/22 11:22 - Medical Decision Making This is a 36-year-old -[place] female with a history of iron deficiency anemia who presents to the ED with complaint of acute onset persistent vaginal discharge, suprapubic pressure, and vaginal itching for the last 1 week. Patient states that she suspect that she may have been exposed to sexually transmitted disease from her sexual partner of 9 years. In the ED, patient is alert and oriented x3 and is not in any distress. Lab test results were reviewed and are all nonactionable including wet prep test results. Patient was empirically treated in the ED with Rocephin and discharged home on antibiotic for suspected chlamydia exposure. Patient was advised to follow-up with the [facility] department for further STD testing including HIV test. Patient was advised return to the ED immediately if symptoms get worse. - Differential Diagnosis STD; UTI; PID; Trichomonas; Bacterial Vaginosis; Critical care attestation.: If time is entered above; I have spent that time in minutes in the direct care of this critically ill patient, excluding procedure time. ED Disposition Clinical Impression: Possible exposure to STD, Vaginal discharge Disposition: 01 HOME / SELF CARE / HOMELESS Is pt being admited?: No Does the pt Need Aspirin: No Condition: Stable Instructions: Abdominal Pain (ED), Safe Sex, Chlamydia, Female, [id number], Gonorrhea, Preventing Sexually Transmitted Infections, Adult Additional Instructions: Take medication with food, drink plenty of fluids, follow-up with the [facility] department for further STD testing including syphilis and HIV. Return to the ED immediately if symptoms get worse Prescriptions: Fluconazole [Diflucan TAB] 200 mg PO QDAY #2 tablet Doxycycline Hyclate 100 mg PO Q12H #20 cap Referrals: [facility] [Provider Group] - 7-10 days Time of Disposition: 14:45 Print Language: POLISH
[2022-03-12 15:48] VITALS: BP 140/80
== END 2022-03-12 15:47 | disposition home or self-care (01) ==
LOC: ED 03:07
DX: N89.8 Other specified noninflammatory disorders of vagina (principal); Z20.2 Contact with and (suspected) exposure to infections with a predominantly sexual mode of transmission; D64.9 Anemia, unspecified; Z98.890 Other specified postprocedural states; F17.290 Nicotine dependence, other tobacco product, uncomplicated
CPT/HCPCS: 36415; 80053; 81001; 81025; 85025; 87210; 96372; 99283; J0696; J3490